=== PATIENT | female | born 1945 | race Caucasian/White ===

== ENCOUNTER → 2017-02-03 16:20 | Outpatient (CLI) | payer MEDICARE, OTHER ==
[2015-10-10 10:48] VITALS: BMI 26.1
[~2017-02-03 16:20] MED LIST: ATARAX 25 MG TA25 MG PO; BENICAR HCT 40-1 TAB PO; GLUCOPHAGE500 MG PO; HYDROCODONE-APA1 TAB PO; L-THYROXINE PO; LEVOXYL50 MCG PO; NEURONTIN 300300 MG PO; NORVASC5 MG PO
== END | disposition home or self-care (01) ==
LOC: D.MAMMO 15:00
DX: Z12.31 Encounter for screening mammogram for malignant neoplasm of breast (principal)

== ENCOUNTER → 2018-01-08 13:16 | Outpatient (CLI) | payer MEDICARE, OTHER ==
[2015-10-10 10:48] VITALS: BMI 26.1
== END | disposition home or self-care (01) ==
LOC: D.CT 13:16
DX: I65.23 Occlusion and stenosis of bilateral carotid arteries (principal)

== ENCOUNTER 2019-09-14 12:38 | Inpatient (IN) | payer MEDICARE, OTHER ==
[~2019-09-14] VITALS: Ht 165.1 cm; Wt 57.6 kg
[2019-09-14] MEDS ORDERED: VITAMIN D3 PO (12:58)
[2019-09-14] MEDS ORDERED: NALTREXONE HCL50 MG PO (12:59)
[2019-09-14] MEDS ORDERED: ULTRAM50 MG PO (12:59)
[2019-09-14] MEDS ORDERED: GLIMEPIRIDE2 MG PO (13:00)
[2019-09-14] MEDS ORDERED: FUROSEMIDE20 MG PO (13:00)
[2019-09-14] MEDS ORDERED: BENICAR20 MG PO (13:01)
[2019-09-14] MEDS ORDERED: PLAVIX75 MG PO (13:02)
[2019-09-14] MEDS ORDERED: CITRACAL + D E1 EACH PO (13:03)
[2019-09-14] MEDS ORDERED: MAGNESIUM OXID250 MG PO (13:03)
[2019-09-14] MEDS ORDERED: POTASSIUM99 M1 PO (13:03)
[2019-09-14] MEDS ORDERED: BAYER CHEWABLE81 MG PO (13:04)
[2019-09-14 14:03] LABS: HEMATOCRIT 47.8 % (36.0-48.0); HEMOGLOBIN 15.1 g/dL (12-16); MCHC 31.6 g/dL (31.0-37.0); MCV 91.7 fL (80.0-100.0); MEAN PLATELET VOLUME 9.3 fL (7.4-10.4); RBC 5.21 10x6/uL (4.00-5.40); RDW 14.5 % (11.5-14.5); WBC 9.1 10x3/uL (4.8-10.8)
[2019-09-14 14:18] LABS: APTT 30.7 SECONDS (22.8-39.4); PROTIME 13.2 SECONDS (11.6-15.0)
[2019-09-14 14:20] LABS: BACTERIA MODERATE /hpf (NEGATIVE); BILIRUBIN NEGATIVE (NEGATIVE); EPITHELIAL CELLS 0-5 /hpf (0-5); GLUCOSE 250 mg/dL (NEGATIVE); KETONE NEGATIVE (NEGATIVE); NITRITE NEGATIVE (NEGATIVE); RED CELLS - URINE 0-5 /hpf (0-5); UROBILINOGEN NORMAL (NORMAL); WHITE CELLS - URINE >50 /hpf (NEGATIVE)
[2019-09-14 14:21] LABS: HYALINE CAST OCC /lpf (NONE SEEN)
[2019-09-14 14:26] LABS: PLT FUNCT.(P2Y12) PLAVIX 125 PRU (194-418)
[2019-09-14 14:29] LABS: ALBUMIN 3.9 g/dL (3.4-5.0); ANION GAP 10.9 mmol/L (8-16); BILIRUBIN - TOTAL 0.31 mg/dL (0.2-1.3); CALCIUM 9.3 mg/dL (8.5-10.1); CARBON DIOXIDE 32.6 mmol/L (21.0-32.0); CREATININE - SERUM 2.3 mg/dL (0.6-1.3); POTASSIUM - SERUM 3.5 mmol/L (3.5-5.1); PROTEIN - SERUM 7.6 g/dL (6.4-8.2)
[2019-09-15] MEDS ORDERED: BACTRIM 400-801 TAB PO (11:18)
[2019-09-15 12:29] VITALS: BP 161/58; BMI 23.0
[2019-09-15 13:04] LABS: BILIRUBIN NEGATIVE (NEGATIVE); GLUCOSE NEGATIVE (NEGATIVE); KETONE NEGATIVE (NEGATIVE); NITRITE NEGATIVE (NEGATIVE); SPECIFIC GRAVITY 1.015 (1.005-1.020); UROBILINOGEN NORMAL (NORMAL)
[2019-09-15 13:55] VITALS: BP 161/58; BMI 23.0
[2019-09-21] VITALS (55 sets, daily range): BP systolic 104–149; BP diastolic 34–62; BMI 23.3; BMI 21.1
--- NOTE | 2019-09-21 11:16 | NUR ---
1034 PT RECIEVED TO ROOM WITH OR STAFF ALERT AND ORIENTED VSS DENIES PAIN L CEA INCISION DRESSING CDI, ALEXANDRA DRAIN COMPRESSED, ICE PACK APPLIED, AGUILLON DRAINING YELLOW URINE, R RADIAL A LINE ZEROED GOOD WAVEFORM WRIST PROTECTOR IN PLACE, PIV TO L HAND PATENT, SEE IV FLOWSHEET FOR DETAILS, CALL LIGHT WITHINR EACH
--- NOTE | 2019-09-21 14:09 | NUR ---
DR JAMES NURSE NOTIFIED OF HR IN 50S
--- NOTE | 2019-09-21 17:23 | NUR ---
1430 ASSISTED TO SIT ON SIDE OF BED PER DR MOORE, TOLERATED WELL AND SAT ON SIDE OF BED UNTIL 1500 THEN ASSISTED BACK TO BED 1600 SISTER HERE FOR VISITATION 1700 ATE 75% DINNER TRAY WHILE AT SIDE OF BED THEN ASSISTED BACK TO BED
--- NOTE | 2019-09-21 17:23 | MORECARE ---
CASE MANAGEMENT DISCHARGE SUMMARY PATIENT: VIRGINIA MANCUSO UNIT: [id number] ADM DATE: 09/21/19 AGE: 74 : 41 SEX: F ROOM/BED: [facility] AUTHOR: VERONICA BRUNER PHYSICIAN: REFERRING PHYSICIAN: DARRYL MOORE MD DATE OF SERVICE: 09/21/19 Discharge Plan Patient Name: VIRGINIA MANCUSO Facility: [facility]:[place] : 1945 Planned Disposition: Home or Self Care Anticipated Discharge Date: Discharge Date: Expected LOS: Initial Reviewer: [email or web address] Initial Review Date: 09/21/2019 Generated: 09/21/19 6:23 pm Patient Name: VIRGINIA MANCUSO Page [id number] at 1723 All edits/amendments must be made on the electronic document DICTATION DATE: 09/21/191722 FAMILY LIFE EDUCATOR: JUVENTINO 09/21/191722 RPT#: [id number] DC DATE: STATUS: ADM IN [facility] [address] [place] [address] END OF REPORT
--- NOTE | 2019-09-21 20:10 | NUR ---
CALLED, PASSWORD VERIFIED, UPDATE GIVEN, NO FURTHER NEEDS AT THIS TIME
[2019-09-22] VITALS (42 sets, daily range): BP systolic 102–151; BP diastolic 36–74; Ht 165.1 cm; Wt 57.6 kg
--- NOTE | 2019-09-22 07:00 | NUR ---
PT REPORT RECEIVED FROM SMALL MACHINE BINDERY OPERATOR NURSE. NO ACUTE SIGNS OF DISTRESS NOTED. PT RESTING IN BED. SHIFT ASSESSMENT COMPLETED. WILL CONTINUE TO MONITOR
--- NOTE | 2019-09-22 09:05 | NUR ---
DR MOORE IN ROOM. D/C ALEXANDRA DRAIN, A LINE, AND AGUILLON. PT TOLERATED WELL. WILL CONTINUE TO MONITOR
--- NOTE | 2019-09-22 10:34 | OP ---
PATIENT NAME: VIRGINIA MANCUSO MEDICAL RECORD: [id number] :41 [id number] ADMISSION DATE:09/21/19 SURGEON: DARYRL MOORE MD DATE OF OPERATION: 09/21/2019 SURGEON: Darryl Moore MD PROCEDURE PERFORMED: Left carotid endarterectomy. PREOPERATIVE DIAGNOSIS: Left carotid stenosis. POSTOPERATIVE DIAGNOSIS: Left carotid stenosis. ANESTHESIA: General endotracheal anesthesia. ESTIMATED BLOOD LOSS: 20 cc. COMPLICATIONS: None. SPECIMENS: Plaque. CONDITION: Stable. DISPOSITION: CV ICU. OPERATIVE FINDINGS: 1. Discrete severely calcified plaque in the proximal internal carotid artery that was divided distally and tacked. CorMatrix patch was used. 2. Neurologically intact to CV ICU. OPERATIVE INDICATION: Discrete severe proximal left internal carotid artery stenosis. DESCRIPTION OF PROCEDURE: The patient was brought to the operating suite where general anesthesia was obtained, the patient was prepped and draped. An oblique incision was made in the left neck, taken down to the common carotid artery, which was encircled. The external carotid and thyroid branch were dissected out and encircled with vessel loops. Heparin was given. The distal internal carotid artery was dissected out. After the heparin had circulated and with appropriately elevated activated clotting time, backbleeding from the internal carotid was controlled with a bulldog clamp. Inflow was controlled with a vascular clamp and backbleeding of the external carotid and thyroid branch were controlled with vessel loops. EEG and cerebral oximetry remained unchanged and these were monitored for 2 minutes prior to beginning the endarterectomy. Remainder of the clamp showed no changes in either of the monitoring devices. Arteriotomy was begun at common carotid artery, taken out the region of dense calcification of the proximal internal carotid artery until a relatively normal region of internal carotid artery distally. The artery was somewhat small 4-5 mm. The plaque was divided and the common carotid artery with an eversion endarterectomy of the external carotid and then beyond the plaque. The plaque was divided. Thorough irrigation was undertaken. All bits of loose debris were removed. The plaque was tacked distally with 7-0 Prolene. A CorMatrix patch was fashioned to the appropriate size, sutured along the edge of the arteriotomy and prior to completing the anastomosis backbleeding was allowed from all 3 major vessels and the endarterectomy bed was again thoroughly flushed. OPERATIVE REPORT [id number] VIRGINIA MANCUSO Anastomosis was completed and flow restored first to the external carotid and then to the internal carotid. Interrupted patch sutures were used for hemostasis. Protamine was given. A drain was placed through a separate stab wound. Thorough irrigation was undertaken. Hemostasis was assured. The wound was closed in 3 layers including Dermabond on the skin. Anesthesia was reversed. The patient was neurologically intact and transferred to the cardiovascular intensive care. TRANSINT:[id number] Voice Confirmation ID: [id number] DOCUMENT ID: [id number] DARRYL MOORE MD at 1034 CC: [id number] DICTATION DATE: 09/21/19 1128 PEDIATRIC LICENSED PRACTICAL NURSE: 09/21/19 1335 ADM IN [place] [id number] [place] [address]
--- NOTE | 2019-09-22 11:30 | NUR ---
PT GIVEN LUNCH TRAY. SITTING UP IN CHAIR. WILL CONTINUE TO MONITOR
--- NOTE | 2019-09-22 11:58 | NUR ---
PHYSICAL THERAPY IN ROOM. PREPARING TO AMBULATE PT. WILL CONTINUE TO MONITOR
--- NOTE | 2019-09-22 12:11 | NUR ---
NOTIFIED DR MOORE'S NURSE, ANNA MARIE, OF PT SYTOLIC BP IN 140'S-150'S RANGE. WILL CONTINUE TO MONITOR
--- NOTE | 2019-09-22 14:37 | NUR ---
ANNA MARIE JAMES NURSE IN ROOM. UPDATE GIVEN. WILL CONTINUE TO MONITOR
--- NOTE | 2019-09-22 15:36 | NUR ---
PT TRANSPORTED OUT TO VEHICLE FOR DISCHARGE. AMBULATED INTO VEHICLE.
--- NOTE | 2019-09-22 16:55 | MORECARE ---
CASE MANAGEMENT DISCHARGE SUMMARY PATIENT: VIRGINIA MANCUSO UNIT: [id number] ADM DATE: 09/21/19 AGE: 74 : 43 SEX: F ROOM/BED: [facility] AUTHOR: VERONICA BRUNER PHYSICIAN: REFERRING PHYSICIAN: DARRYL MOORE MD DATE OF SERVICE: 09/22/19 Discharge Plan Patient Name: VIRGINIA MANCUSO [facility] [facility] 1945 Planned Disposition: Home or Self Care Anticipated Discharge Date: Discharge Date: 09/22/2019 Expected LOS: Initial Reviewer: [email or web address] Initial Review Date: 09/21/2019 Generated: 09/22/19 5:55 pm DCPIA - Discharge Planning Initial Assessment Updated by [email or web address]: Argenis Norman on 09/22/19 4:45 pm * Is the patient Alert and Oriented? Yes Last DP export: 09/21/19 4:23 p Patient Name: VIRGINIA MANCUSO Page [id number] at 1655 All edits/amendments must be made on the electronic document DICTATION DATE: 09/22/191654 HOME FIRE ALARM INSTALLER: JUVENTINO 09/22/191654 RPT#: [id number] DC DATE:09/22/19 STATUS: DIS IN [facility] [address] [place] [address] END OF REPORT
== END 2019-09-22 15:36 | disposition home or self-care (01) | DRG 39 ==
LOC: D.SDCHOLD 09-17 07:30 → D.CVICU 09-21 04:45 → D.SDCHOLD 09-21 07:30 → D.CVICU 09-21 09:14
PROVIDERS: ADMIT Thoracic Surgery (Cardiothoracic Vascular Surgery); ATTEND Thoracic Surgery (Cardiothoracic Vascular Surgery)
PROC: 03UL0JZ Supplement Left Internal Carotid Artery with Synthetic Substitute, Open Approach (ICD-10-PCS; 2019-09-21)
PROC: 03CL0ZZ Extirpation of Matter from Left Internal Carotid Artery, Open Approach (ICD-10-PCS; principal; 2019-09-21 07:30)
DX: I65.22 Occlusion and stenosis of left carotid artery (principal); R00.1 Bradycardia, unspecified; E11.9 Type 2 diabetes mellitus without complications; J44.9 Chronic obstructive pulmonary disease, unspecified; I10 Essential (primary) hypertension; F17.200 Nicotine dependence, unspecified, uncomplicated

== ENCOUNTER → 2019-11-15 09:32 | Outpatient (CLI) | payer MEDICARE, OTHER ==
[2019-09-22 09:58] VITALS: BMI 21.1
[~2019-11-15 09:32] MED LIST changes: +BACTRIM 400-801 TAB PO; +BAYER CHEWABLE81 MG PO; +BENICAR20 MG PO; +CITRACAL + D E1 EACH PO; +FUROSEMIDE20 MG PO; +GLIMEPIRIDE2 MG PO; +MAGNESIUM OXID250 MG PO; +NALTREXONE HCL50 MG PO; +PLAVIX75 MG PO; +POTASSIUM99 M1 PO; +ULTRAM50 MG PO; +VITAMIN D3 PO
== END | disposition home or self-care (01) ==
LOC: D.US 09:32
PROVIDERS: ATTEND Nurse Practitioner Family
DX: N18.3 Chronic kidney disease, stage 3 (moderate) (principal); E11.9 Type 2 diabetes mellitus without complications; I10 Essential (primary) hypertension; Z68.22 Body mass index [BMI] 22.0-22.9, adult